=== PATIENT | male | born 1965 | race Hispanic/Latino ===

== ENCOUNTER 2022-11-18 19:31 | Emergency (ER) | payer OTHER ==
[~2022-11-18] VITALS: Ht 167.6 cm; Wt 71.2 kg
[2022-11-18] MEDS ORDERED: SOLU-MEDROL 125MG VIAL IVP ONE (20:00)
[2022-11-18] MEDS ORDERED: DiphenhydrAMINE HCL 50 MG/ML VIAL IV ONE ×2 (20:00→22:00)
[2022-11-18] MEDS ORDERED: EPINEPHRINE PF 1MG (1:1,000) 1 MG/ML AMP IM ONE ×2 (20:00→21:30)
[2022-11-18] MEDS ORDERED: FAMO-136 PO (20:26)
[2022-11-18] MEDS ORDERED: EPIN0.3P2 IM (20:26)
[2022-11-18] MEDS ORDERED: PRED20TA3 PO (20:26)
[2022-11-18] MEDS ORDERED: DIPH50 PO (20:26)
[2022-11-18 20:54] LABS: BASOPHILS % (AUTO) 0.5 % (0.0-5.0); EOSINOPHILS % (AUTO) 1.3 % (0.0-8.0); HEMATOCRIT 44.3 % (42-54); LYMPHOCYTES % (AUTO) 50.6 % (21.0-51.0); MEAN CORPUSCULAR HEMOGLOBIN 31.3 pg (27.0-33.0); MEAN CORPUSCULAR HGB CONC 34.3 g/dL (32.0-36.0); MEAN CORPUSCULAR VOLUME 91.2 fL (79-99); MONOCYTES % (AUTO) 8.2 % (3.0-13.0); NEUTROPHILS % (AUTO) 39.3 % (40.0-77.0); PLATELET COUNT (AUTO) 181 K/uL (130-400); RED BLOOD CELL COUNT(AUTO) 4.86 MIL/uL (4.50-6.20); RED CELL DISTRIBUTION WIDTH 12.1 % (11.0-15.5); WHITE BLOOD COUNT (AUTO) 8.5 K/uL (4.8-10.8)
[2022-11-18 21:12] LABS: CREATININE 1.4 mg/dL (0.5-1.5)
[2022-11-18 21:15] LABS: ALBUMIN 3.6 g/dL (3.5-5.0); TOTAL PROTEIN, SERUM 6.9 g/dL (6.0-8.3)
[2022-11-18] MEDS ORDERED: POTASSIUM BICARB/CIT AC 25 MEQ TABLET.EFF PO ONE (21:30)
[2022-11-18 21:33] LABS: B-TYPE NATRIURETIC PEPTIDE 5 pg/mL (0-100)
[2022-11-18] MEDS ORDERED: FAMOTIDINE 20MG VIAL IV ONE (22:00)
[2022-11-18 23:37] VITALS: BP 158/68; PULSE 88; RESP 16; O2SAT 99
== END 2022-11-19 00:07 | disposition home or self-care (01) ==
LOC: EDH 19:31
DX: T78.3XXA Angioneurotic edema, initial encounter (principal); E11.9 Type 2 diabetes mellitus without complications; Z79.52 Long term (current) use of systemic steroids; Z88.5 Allergy status to narcotic agent
CPT/HCPCS: 99285; 96374; 96375; 84484; 80053; 83880; 85025; 36415; 96372 ×2; 96376; J1200 ×2; J3490; J2930; J0171 ×2

== ENCOUNTER 2023-09-03 17:59 | Emergency (ER) | payer BC, OTHER ==
[~2023-09-03] VITALS: Ht 167.6 cm; Wt 65.3 kg
[~2023-09-03 17:59] MED LIST: DIPH50 PO; EPIN0.3P2 IM; FAMO-136 PO; PRED20TA3 PO
[2023-09-03 18:30] VITALS: BP 151/79; PULSE 86; RESP 16; O2SAT 97
== END 2023-09-03 20:25 | disposition home or self-care (01) ==
LOC: EDH 17:59
DX: M25.811 Other specified joint disorders, right shoulder (principal); E11.9 Type 2 diabetes mellitus without complications; E78.00 Pure hypercholesterolemia, unspecified
CPT/HCPCS: 73030

== ENCOUNTER 2023-12-14 14:23 | Emergency (ER) | payer BC ==
[~2023-12-14] VITALS: Ht 167.6 cm; Wt 66.2 kg
[2023-12-14] MEDS: KETOROLAC 15MG/ML VIAL (15MG/ML) IV ONE (15:14)
[2023-12-14] MEDS ORDERED: KETO10TA2 PO (16:01)
[2023-12-14 16:18] VITALS: BP 131/75; PULSE 90; RESP 16; O2SAT 100
== END 2023-12-14 16:31 | disposition home or self-care (01) ==
LOC: EDH 14:23
DX: S46.911A Strain of unspecified muscle, fascia and tendon at shoulder and upper arm level, right arm, initial encounter (principal); E11.9 Type 2 diabetes mellitus without complications; E78.00 Pure hypercholesterolemia, unspecified; Z79.899 Other long term (current) drug therapy; W18.39XA Other fall on same level, initial encounter; Y93.89 Activity, other specified; Y92.89 Other specified places as the place of occurrence of the external cause; Y99.8 Other external cause status
CPT/HCPCS: 99284; 96374; 73030; J1885